=== PATIENT | male | born 1930 | race Caucasian/White ===

== ENCOUNTER 2016-05-02 13:42 | Emergency (ER) | payer OTHER, MEDICARE ==
[~2016-05-02] VITALS: Ht 177.8 cm; Wt 95.3 kg
[~2016-05-02 13:42] MED LIST: ALBUTEROL0.09 MG/A1 PO; AUGMENTIN 875875 MG PO; DIOVAN HCT 1601 EAC1 PO; PREDNISONE10 MG PO; Robitussin PO
--- NOTE | 2016-05-02 14:34 | ED GENERAL ADULT ---
History of Present Illness General Chief Complaint: Upper Respiratory Sx/Fever Stated Complaint: URI/SORETHROAT Source: patient, old records Exam Limitations: no limitations Vital Signs & Intake/Output Vital Signs & Intake/Output Vital Signs Date Time Temp Pulse Resp B/P Pulse O2 O2 Flow FiO2 Ox Delivery Rate 05/02 1538 98.0 75 22 136/64 94 Room Air 05/02 1525 94 05/02 1500 94 Room Air Room Air 05/02 1355 97.8 72 20 110/66 94 Room Air Allergies Coded Allergies: NO KNOWN ALLERGIES (05/02/16) Reconcile Medications Albuterol Sulfate (Proair Hfa) 90 MCG HFA.AER.AD 2 PUF INH Q4-6 PRN PRN WHEEZING Azithromycin (Zithromax) 250 MG TABLET 1 DP PO AD BRONCHITIS 2 the first day followed by 1 for days 2-5 Benzonatate (Tessalon Perle) 100 MG CAPSULE 1 CAP PO TID PRN COUGH Hydrochlorothiazide/Valsarta (Diovan Hct 25 MG-160 MG) 1 TAB TAB 1 TAB PO DAILY HTN (Reported) Triage Note: RECEIVED 85 YO MALE C/O SORE THROAT, RUNNY NOSE, CONGESTION, MILD COUGH X 6 DAYS WITH CONGESTION. PT REPORTS WHEEZING TODAY. FAINT EXP WHHEZES AUSCULTATED. O2 SATS 97% Triage Nurses Notes Reviewed? yes Onset: Gradual Duration: week(s): (1) Timing: recent history Injury Environment: home Severity: moderate Severity Numbers: 6 HPI: Patient is an 85-year-old male presenting to the emergency department with chief complaint of wheezing, dry cough and chills and upper respiratory congestion nothing going on for the past 7 or 8 days. He's been using over the counter medication without relief. Denies any fevers. No recent travel. He did receive the flu vaccination this year. No chest pain or shortness of breath. Denies abdominal pain. No back pain. No palpitations. (ADRIENNE CHILDS) Past History Travel History Traveled to [place] past 21 day No Medical History Any Pertinent Medical History? 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 No (ADRIENNE CHILDS) Review of Systems Review of Systems Constitutional: Reports: chills. Comments Review of systems: See HPI, All other systems negative. Constitutional, no fever or weight loss HEENT: No visual changes no sore throat Cardiovascular: No chest pain ,palpitation , orthopnea or ankle swelling Skin, no jaundice no rashes Respiratory: No dyspnea sputum or hemoptysis GI: No nausea no vomiting : No dysuria No hematuria Muscle skeletal: no back pain, no neck pain, Neurologic: No numbness no confusion no evans Psych: No stress anxiety or depression,. Heme/endocrine: No bruising no bleeding no polyuria or polydipsia Immunology: No splenectomy or history of AIDS (ADRIENNE CHILDS) Physical Exam Physical Exam General Appearance: well developed/nourished, no apparent distress, alert, awake , comfortable Comments: Well-developed well-nourished person in no acute distress HEENT: Pupils equally round and reactive to light and accommodation. Nose is atraumatic. External auditory canal and Tympanic membranes clear. Pharynx is mildly erythematous, no exudate, clearing secretions without difficulty. No swelling or edema. Clear nasal discharge bilaterally. Neck: Supple, no lymphadenopathy, normal range of motion without pain or tenderness Back: Nontender, no CVA tenderness. Full range of motion Cardiovascular: Regular rate and rhythms no murmurs rubs or gallops, normal JVP Respiratory: Chest nontender. No respiratory distress.mild respiratory wheezing noted in the right upper lung field, left lung field is clear to auscultation. Extremity: No edema, Neuro: Alert oriented x3 Skin: No appreciable rash on exposed skin, skin is warm and dry. Psych: Mood and affect is normal, memory and judgment is normal. Core Measures ACS in differential dx? No CVA/TIA Diagnosis: No Severe Sepsis Present: No Septic Shock Present: No (ADRIENNE CHILDS) Progress Differential Diagnoses I considered the following diagnoses in my evaluation of the patient: Pneumonia , bronchitis, upper respiratory infection, sinusitis, viral syndrome Plan of Care: Orders Procedure Date/time Status AEROSOL (GEN) 05/02 1500 Complete THROAT CULTURE W/QUICK STREP 05/02 1357 Active Diagnostic Imaging: Viewed by Me: Radiology Read. Discussed w/RAD: Radiology Read. Radiology Impression: PATIENT: RENE ELY PRESENT AGE: 85 PATIENT ACCOUNT NO: [id number] : 31 LOCATION: [facility] ORDERING PHYSICIAN: ADRIENNE ROBISON SERVICE DATE: 05/02/16 EXAM TYPE: RAD - XRY-CHEST XRAY, PA AND LATERAL EXAMINATION: XR CHEST CLINICAL INFORMATION: Cough , congestion. Evaluate for pneumonia. COMPARISON: Multiple priors, most recent chest radiograph dated 01/14/2015. TECHNIQUE: PA and lateral views of the chest were obtained. FINDINGS: No focal consolidation. No pleural effusion or pneumothorax. The cardiomediastinal silhouette is not enlarged. Nonspecific linear calcification is redemonstrated at the cardiac apex, more prominent than on the prior examination. Mild degenerative changes within the visualized thoracic spine. IMPRESSION: 1. No focal consolidation. 2. Nonspecific linear calcification redemonstrated at the cardiac apex, more prominent than on the prior examination. Initial ED EKG: none Comments: On reevaluation patient's wheezing has improved. X-rays negative for pneumonia. Patient likely has bronchitis. Patient will be started on antibiotics, Tessalon Perles, pro-air. He will follow up with PCP. Discussed with Dr. Mendes and he agrees with plan. (ADRIENNE CHILDS) Departure Departure Time of Disposition: 1547 Disposition: HOME OR SELF CARE Condition: Stable Clinical Impression Primary Impression: Bronchitis Referrals: KRISTEN OLIVA MD (PCP/Family) Additional Instructions: Follow-up with your primary care physician call to make an appointment. Increase fluids. Take antibiotics, cough medication and use inhaler as directed. Return for worsening symptoms or concerns. Departure Forms: Customer Survey General Discharge Information Prescriptions: Current Visit Scripts Azithromycin (Zithromax) 1 DP PO AD #6 TAB 2 the first day followed by 1 for days 2-5 Benzonatate (Tessalon Perle) 1 CAP PO TID PRN COUGH #21 CAP Albuterol Sulfate (Proair Hfa) 2 PUF INH Q4-6 PRN PRN WHEEZING #1 INHAL (ADRIENNE CHILDS) PA/CATTLE DEALER Co-Sign Statement Statement: ED Attending supervision documentation- x I saw and evaluated the patient. I have also reviewed all the pertinent lab results and diagnostic results. I agree with the findings and the plan of care as documented in the PA's/CATTLE DEALER's documentation. [] I have reviewed the ED Record and agree with the PA's/CATTLE DEALER's documentation. [] Additions or exceptions (if any) to the PAs/CATTLE DEALER's note and plan are summarized below: [] (YOLANDA JUAREZ,ELIZA) Critical Care Note Critical Care Note Critical Care Time: non-applicable (ADRIENNE CHILDS)
--- NOTE | 2016-05-02 15:30 | RADIOLOGY REPORT ---
EXAMINATION: XR CHEST CLINICAL INFORMATION: Cough, congestion. Evaluate for pneumonia. COMPARISON: Multiple priors, most recent chest radiograph dated 01/14/2015. TECHNIQUE: PA and lateral views of the chest were obtained. FINDINGS: No focal consolidation. No pleural effusion or pneumothorax. The cardiomediastinal silhouette is not enlarged. Nonspecific linear calcification is redemonstrated at the cardiac apex, more prominent than on the prior examination. Mild degenerative changes within the visualized thoracic spine. IMPRESSION: 1. No focal consolidation. 2. Nonspecific linear calcification redemonstrated at the cardiac apex, more prominent than on the prior examination.
[2016-05-02 15:38] VITALS: BP 136/64
[2016-05-02] MEDS ORDERED: PROAIR HFA8.5 GM INH (15:49)
[2016-05-02] MEDS ORDERED: TESSALON PERLE100 M1 PO (15:49)
[2016-05-02] MEDS ORDERED: ZITHROMAX250 M2 PO (15:49)
== END 2016-05-02 16:08 ==
LOC: ERH 13:42
DX: J40 Bronchitis, not specified as acute or chronic (principal)
CPT/HCPCS: 1263

== ENCOUNTER 2016-05-09 11:00 | Emergency (ER) | payer OTHER, MEDICARE ==
[~2016-05-09] VITALS: Ht 177.8 cm; Wt 95.3 kg
[~2016-05-09 11:00] MED LIST changes: +PROAIR HFA8.5 GM INH; +TESSALON PERLE100 M1 PO; +ZITHROMAX250 M2 PO
[2016-05-09 11:13] VITALS: BP 111/67
--- NOTE | 2016-05-09 11:38 | ED GENERAL ADULT ---
History of Present Illness General Chief Complaint: Hand or Wrist Injury Stated Complaint: HAND INJURY Source: patient Exam Limitations: no limitations Vital Signs & Intake/Output Vital Signs & Intake/Output Vital Signs Date Time Temp Pulse Resp B/P Pulse O2 O2 Flow FiO2 Ox Delivery Rate 05/09 1113 96.9 71 20 111/67 95 Room Air Room Air Allergies Coded Allergies: NO KNOWN ALLERGIES (05/02/16) Reconcile Medications Ibuprofen 800 MG TABLET 1 TAB PO TID PAIN Tramadol HCl 50 MG TABLET 1 TAB PO Q6P PRN SEVERE PAIN Valsartan/Hydrochlorothiazide (Diovan Hct 160-25 MG Tablet) 160 MG-25 MG TABLET 1 TAB PO DAILY HEART (Reported) Triage Note: PT TO ED WITH C/O LEFT HAND INJURY S/P "I WAS PLAYING FOOTBALL WITH THE KIDS A FEW DAYS AGO, THIS MORNING ALOT OF PAIN". Triage Nurses Notes Reviewed? yes HPI: 85 year old man seen for evaluation of left hand/wrist pain. He was playing football approximately three days ago when he caught the ball in a way where he stubbed his thumb and index finger. He reports associated 9/10 achy pain without radiation in those fingers and wrist. He denies any further injury, falls, head trauma, loss of consciousness, numbness/tingling. He does admit to weakness secondary to pain. (ANALI RAGSDALE MD) Past History Travel History Traveled to [place] past 21 day No Medical History Any Pertinent Medical History? 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 Yes (ANALI RAGSDALE MD) Review of Systems Review of Systems Constitutional: Reports: see HPI. (ANALI RAGSDALE MD) Physical Exam Physical Exam General Appearance: well developed/nourished, no apparent distress, alert, awake , comfortable Comments: General - well developed, well nourished elderly man in no acute distress HEENT - NCAT, PERRL, EOMI, anicteric sclera Ext: left hand wrapped in KOBI banagage without any obvious drainage, no obvious deformity or skin lesions, unable to grasp secondary to pain, normal pulses and sensation, anatomical snuff box tenderness to palpation Core Measures ACS in differential dx? No CVA/TIA Diagnosis: No Severe Sepsis Present: No Septic Shock Present: No (ANALI RAGSDALE MD) Progress Differential Diagnoses I considered the following diagnoses in my evaluation of the patient: ligamentous strain, bone fracture Initial ED EKG: none Comments: Radiographs obtained of the right hand and wrist did not demonstrate any acute fracture or dislocation. Extensive manifestations of osteoarthritis, most notable at the first carpometacarpal joint and first interphalangeal joint are noted. Patient's left hand/wrist were placed in a splint. Patient is to be discharged to home with a prescription for ibuprofen for pain relief and a short prescription of tramadol for breakthrough pain with instruction to follow-up with his primary care provider should his symptoms persist. 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 Take ibuprofen and tramadol as directed. Departure Forms: Customer Survey General Discharge Information Prescriptions: Current Visit Scripts Ibuprofen 1 TAB PO TID #90 TAB Tramadol HCl 1 TAB PO Q6P PRN SEVERE PAIN #15 TAB (ANALI RAGSDALE MD) Resident Co-Sign Statement Statement: ED Attending supervision documentation- [X] I saw and evaluated the patient. I have also reviewed all the pertinent lab results and diagnostic results. I agree with the findings and the plan of care as documented in the Resident's documentation. [] I have reviewed the ED Record and agree with the Resident's documentation. [] Additions or exceptions (if any) to the Resident's note and plan are summarized below: [] (VICKI JUAREZJASE) Critical Care Note Critical Care Note Critical Care Time: non-applicable (MELYSSA JUAREZ,ANALI)
--- NOTE | 2016-05-09 12:15 | RADIOLOGY REPORT ---
EXAMINATION: XR WRIST, LEFT XR HAND, LEFT CLINICAL INFORMATION: Injury to left hand and wrist COMPARISON: Left wrist radiographs and left hand radiograph 07/17/2010. TECHNIQUE: 4 views of the left wrist and 3 views of the left hand performed. FINDINGS: Left wrist: Mild to moderate degenerative changes are seen at the triscaphe joint and moderately advanced degenerative changes at the first carpometacarpal joint are identified with sclerosis, joint space narrowing and osteophyte formation. There is mild lateral subluxation of the first metacarpal bone. The findings are slightly progressed since prior. No acute abnormality is seen in the carpal bones. Left hand: Degenerative changes are seen at the first carpometacarpal joint with lateral subluxation, subchondral sclerosis and cystic change identified. There is mild narrowing of the first and second metacarpal phalangeal joints with soft tissue swelling. Moderate narrowing of the third through fifth metacarpal phalangeal joints. Moderately advanced degenerative changes are seen at the first interphalangeal joint with joint space narrowing and osteophyte formation. There is advanced joint space narrowing and hypertrophic osteophyte formation with subchondral sclerosis involving the second through fifth PIP and DIP joints with progression since 07/17/2010. Associated moderate periarticular soft tissue swelling. No evidence of chondrocalcinosis. IMPRESSION: No acute fracture or dislocation is seen. Extensive manifestations of osteoarthritis most notable at the first carpometacarpal joint and the first interphalangeal joint and the second through fifth PIP and DIP joints as above. The findings have shown progression since the prior study of 07/17/2010.
[2016-05-09] MEDS ORDERED: IBUPROFEN800 M1 PO (12:25)
[2016-05-09] MEDS ORDERED: TRAMADOL HCL50 M1 PO (12:25)
== END 2016-05-09 12:39 ==
LOC: ERH 11:00
DX: M19.032 Primary osteoarthritis, left wrist (principal); M79.642 Pain in left hand
CPT/HCPCS: 73110-LT; 73130-LT

== ENCOUNTER 2016-10-09 14:44 | Emergency (ER) | payer OTHER, MEDICARE ==
[~2016-10-09] VITALS: Ht 170.2 cm; Wt 96.2 kg
[~2016-10-09 14:44] MED LIST changes: +IBUPROFEN800 M1 PO; +TRAMADOL HCL50 M1 PO
[2016-10-09 14:54] VITALS: BP 120/70
== END 2016-10-09 15:00 | disposition admitted as inpatient to this hospital (09) ==
LOC: ERH 14:44
DX: Z77.098 Contact with and (suspected) exposure to other hazardous, chiefly nonmedicinal, chemicals (principal)

== ENCOUNTER 2017-09-11 15:20 | Inpatient (IN) | payer OTHER, MEDICARE ==
[~2017-09-11] VITALS: Ht 177.8 cm; Wt 92.1 kg
[~2017-09-11 15:20] MED LIST changes: +BACLOFEN10 M1 PO; +IBUPROFEN600 M1 PO; +ULTRAM50 M1 PO
--- NOTE | 2017-09-11 15:29 | ED GENERAL ADULT ---
See Addendum History of Present Illness General Chief Complaint: Lower Extremity Problems Stated Complaint: RIGHT KNEE PAIN X1 WEEK Source: patient Exam Limitations: no limitations Vital Signs & Intake/Output Vital Signs & Intake/Output Vital Signs Date Time Temp Pulse Resp B/P B/P Pulse O2 O2 Flow FiO2 Mean Ox Delivery Rate 09/11 1703 97.6 72 18 178/72 97 Room Air Room Air 09/11 1527 98.7 77 18 188/78 95 Room Air Room Air Allergies Coded Allergies: NO KNOWN ALLERGIES (05/02/16) Reconcile Medications Baclofen 10 MG TABLET 1 TAB PO TIDPRN PRN muscle spasm/strain Ibuprofen 600 MG TABLET 1 TAB PO Q6PRN PRN pain with food Ibuprofen 800 MG TABLET 1 TAB PO TID PAIN Tramadol HCl (Ultram) 50 MG TABLET 1 TAB PO Q6PRN PRN severe pain Tramadol HCl 50 MG TABLET 1 TAB PO Q6P PRN SEVERE PAIN Valsartan/Hydrochlorothiazide (Diovan Hct 160-25 MG Tablet) 160 MG-25 MG TABLET 1 TAB PO DAILY HEART (Reported) Triage Nurses Notes Reviewed? yes Onset: Yesterday Duration: day(s): Timing: recent history Severity: moderate HPI: 87 Year old male presents to the Emergency Department presents with right sided knee pain and hip pain. He was climbing the stairs when his right knee gave out causing him to go down on his right knee. He denies headache, neck pain, chest pain or other complaints. He does have a history of chronic low back pain. Past History Travel History Traveled to [place] past 21 day No Medical History Any Pertinent Medical History? 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 No Review of Systems Review of Systems Constitutional: Reports: see HPI. EENTM: Reports: no symptoms. Respiratory: Reports: no symptoms. Cardiovascular: Reports: no symptoms. GI: Reports: no symptoms. Genitourinary: Reports: no symptoms. Musculoskeletal: Reports: see HPI, joint pain, joint swelling, muscle pain, muscle stiffness. Skin: Reports: no symptoms. Neurological/Psychological: Reports: no symptoms. Hematologic/Endocrine: Reports: no symptoms. Immunologic/Allergic: Reports: no symptoms. Physical Exam Physical Exam General Appearance: well developed/nourished, alert, awake, mild distress Head: atraumatic, normal appearance Eyes: Bilateral: normal appearance, PERRL, EOMI. Ears, Nose, Throat: normal ENT inspection Neck: normal inspection, full range of motion Respiratory: normal breath sounds, chest non-tender Cardiovascular: regular rate/rhythm Peripheral Pulses: 4+ radial (R), 4+ radial (L), 4+ dorsalis pedis (R), 4+ dorsalis pedis (L) Gastrointestinal: soft, non-tender Back: normal inspection Extremities: Right knee pain and swelling, Right hip pain Neurologic/Psych: awake, alert, oriented x 3 Skin: intact, normal color, warm/dry Core Measures ACS in differential dx? No CVA/TIA Diagnosis: No Sepsis Present: No Sepsis Focused Exam Completed? No Progress Differential Diagnoses I considered the following diagnoses in my evaluation of the patient: Contusion of knee, Patella fracture, Muscle strain, Hip dislocation, Dislocation of the patella. Plan of Care: Orders Procedure Date/time Status COMPREHENSIVE METABOLIC PANEL 09/11 1536 Active CBC WITHOUT DIFFERENTIAL 09/11 1536 Complete Current Medications Sig/Edgardo Start time Last Medication Dose Stop Time Status Admin Sodium Chloride 1,000 ML ONCE ONE 09/11 1545 AC 09/11 (Normal Saline 0.9%) 09/11 2224 1645 Laboratory Tests 09/11/17 1651: Sodium Pending, Potassium Pending, Chloride Pending, Carbon Dioxide Pending, Anion Gap Pending, BUN Pending, Creatinine Pending, BUN/Creatinine Ratio Pending , Glucose Pending, Calcium Pending, Total Bilirubin Pending, AST Pending, ALT Pending, Alkaline Phosphatase Pending, Total Protein Pending, Albumin Pending, Globulin Pending, Albumin/Globulin Ratio Pending, CBC w Diff NO MAN DIFF REQ, RBC 4.27 L, MCV 86.6, MCH 29.1, MCHC 33.5, RDW 13.5, MPV 7.6, Gran % 67.7, Lymphocytes % 20.1 L, Monocytes % 8.4, Eosinophils % 3.5, Basophils % 0.3, Absolute Granulocytes 4.2, Absolute Lymphocytes 1.3, Absolute Monocytes 0.5, Absolute Eosinophils 0.2, Absolute Basophils 0 Initial ED EKG: none Departure Departure Disposition: STILL A PATIENT Condition: Stable Clinical Impression Primary Impression: Knee pain Referrals: Oumar Davis MD (PCP/Family) Departure Forms: Customer Survey General Discharge Information Comments CT of the pelvis and x-ray of the right knee were ordered. IMPRESSION: Degenerative disc disease at L4-L5 and L5-S1. There is spinal stenosis at L4-L5 due to disc, short pedicles and facet arthritis. 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 No fracture, dislocation or bone lesion is seen. DICTATED BY: Malena Santos MD DATE/TIME DICTATED:09/11/171632 SPECIALTY MOLDER:CLEMENTE DATE/TIME TRANSCRIBED:09/11/171632 CONFIDENTIAL, DO NOT COPY WITHOUT APPROPRIATE AUTHORIZATION. <Electronically signed in Other Vendor System> SIGNED BY: Malena Santos MD 164 PATIENT: RENE ELY PRESENT AGE: 87 PATIENT ACCOUNT NO: [id number] : 31 LOCATION: [facility] ORDERING PHYSICIAN: Jovany Hope DO SERVICE DATE: 09/11/17 EXAM TYPE: RAD - XRY-KNEE COMPLETE RIGHT EXAMINATION: XR KNEE, RIGHT CLINICAL INFORMATION: Fall. Pain. COMPARISON: None TECHNIQUE: Four views of the right knee. FINDINGS: There is no visible acute fracture or dislocation. Mild loss of medial compartment joint space is noted. There is moderate superior and inferior patellar enthesophytes and superior inferior spurring. No loose bodies seen. No bony erosive changes. IMPRESSION: Loss of medial compartment joint space suggestive of degenerative arthritic changes. No visible acute fracture, dislocation or subluxation seen. DICTATED BY: Joseph Almanza MD DATE/TIME DICTATED:09/11/171627 SPECIALTY MOLDER:CLEMENTE DATE/TIME TRANSCRIBED:09/11/171627 CONFIDENTIAL, DO NOT COPY WITHOUT APPROPRIATE AUTHORIZATION. <Electronically signed in Other Vendor System> SIGNED BY: Joseph Almanza MD 09/11/171633 CT scan of the pelvis shows spinal stenosis and degenerative joint disease. X- ray of the right knee show severe arthritic changes. No fracture or dislocation. Repeat vascular injury of the lower extremity is normal. The right foot is warm. There is no popliteal swelling. Right dorsalis pedis pulse is 4+ and his capillary refill of all the toes of the right foot is less than 2 seconds. We'll treat with right knee immobilizer and cane for ambulation. He will follow -up with orthopedics this week. Short course of prednisone. Critical Care Note Critical Care Note Critical Care Time: non-applicable
--- NOTE | 2017-09-11 16:34 | RADIOLOGY REPORT ---
EXAMINATION: XR KNEE, RIGHT CLINICAL INFORMATION: Fall. Pain. COMPARISON: None TECHNIQUE: Four views of the right knee. FINDINGS: There is no visible acute fracture or dislocation. Mild loss of medial compartment joint space is noted. There is moderate superior and inferior patellar enthesophytes and superior inferior spurring. No loose bodies seen. No bony erosive changes. IMPRESSION: Loss of medial compartment joint space suggestive of degenerative arthritic changes. No visible acute fracture, dislocation or subluxation seen.
--- NOTE | 2017-09-11 16:43 | CT SCAN REPORT ---
EXAMINATION: CT PELVIS WITHOUT CONTRAST CLINICAL INFORMATION: Low back and right hip pain COMPARISON: Spine and left hip x-ray November 2016 TECHNIQUE: Helical scanning was performed with submillimeter collimation through the pelvis. Sagittal and coronal multiplanar 2-D reconstructions were obtained. DLP: 1130 mGy-cm FINDINGS: There is evidence of degenerative disc disease and secondary spinal stenosis due to the disc, short pedicles and facet arthritis at L4-L5. There is also evidence of severe degenerative disc disease with disc space narrowing and vacuum change at L5-S1. There is mild arthritis at both hip joints. No fracture, dislocation or bone lesion is seen. Visualized bowel is unremarkable. The prostate gland is slightly enlarged measuring 4.4 x 5.7 cm in AP and transverse dimension. The bladder is unremarkable. No ascites or adenopathy is seen. No aneurysm is seen. No significant hernia is seen. IMPRESSION: Degenerative disc disease at L4-L5 and L5-S1. There is spinal stenosis at L4-L5 due to disc, short pedicles and facet arthritis. 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 No fracture, dislocation or bone lesion is seen.
[2017-09-11 17:02] LABS: ABSOLUTE BASOPHIL COUNT 0 /CUMM (0.0-0.2); ABSOLUTE EOSINOPHIL COUNT 0.2 /CUMM (0.0-0.7); ABSOLUTE GRANULOCYTE CT 4.2 /CUMM (1.4-6.5); ABSOLUTE LYMPH COUNT 1.3 /CUMM (1.2-3.4); ABSOLUTE MONOCYTE COUNT 0.5 /CUMM (0.10-0.60); BASOPHIL % 0.3 % (0.0-2.0); EOSINOPHIL % 3.5 % (0-5); GRANULOCYTE % 67.7 % (42.2-75.2); MEAN CORPUSCULAR HGB 29.1 PG (27.0-31.0); MEAN CORPUSCULAR HGB CONC 33.5 G/DL (33.0-37.0); MEAN CORPUSCULAR VOLUME 86.6 FL (80.0-94.0); MEAN PLATELET VOLUME 7.6 FL (7.4-10.4); PLATELET COUNT 225 /CUMM (130-400); RBC DISTRIBUTION WIDTH 13.5 % (11.5-14.5); RED BLOOD CELL CT 4.27 /CUMM (4.70-6.10); WHITE BLOOD CELL COUNT 6.3 /CUMM (4.8-10.8)
[2017-09-11] MEDS ORDERED: PREDNISONE20 M1 PO (18:00)
[2017-09-11] MEDS ORDERED: VITAMIN D2000 UNIT PO (18:56)
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
[2017-09-11 21:54] VITALS: BP 158/72
--- NOTE | 2017-09-12 01:13 | Admission Certification ---
Admission Certification Certification Statement - As attending physician, I certify that at the time of - admission, based on clinical presentation, severity of - symptoms, need for further diagnostic testing and - therapeutic interventions, and risk of adverse outcomes - without in-hospital treatment, in my clinical assessment, - this patient requires an acute hospital stay for a minimum - of two nights or longer. I have also considered psychsocial - factors such as support system, advanced age, financial - issues, cognitive issues, and failed out-patient treatments, - past re-admission history, safety of patient, and lack of - compliance as applicable. Specific rationale supporting this admission is: Right knee pain, unstable gait, inability to to ambulate
[2017-09-12 06:30] VITALS: BP 124/60
--- NOTE | 2017-09-12 09:32 | PN- Orthopedic ---
Surgical Brief Attending Note Brief Attending Note: Asked to see the patient in consultation for right knee pain. Patient was admitted to the hospital complaints of difficulty bearing weight on the right lower extremity. Have difficulty going up and down stairs. Patient was admitted to the hospital complaints of difficulty bearing weight on the right lower extremity. No trauma reported. No trauma reported. On physical exam the patient lumbar spine was examined. There is no significant paraspinal muscle spasm lumbar spine is examined. Bilateral lower extremities neurovascularly intact. No swelling about the right knee. Painless range of motion of the right knee. No sign of septic arthritis. No sign of septic arthritis. X-rays the right knee reveal minimal degenerative changes. CT scan of the pelvisCT scan of the pelvis shows visualization lumbar spine with degenerative disc disease and spinal stenosis Assessment: Low back and right leg pain Consider anti-inflammatory treatment or Medrol Dosepak
[2017-09-12 14:26] VITALS: BP 134/60
--- NOTE | 2017-09-12 15:12 | PN- Att Addend ---
Attending Addendum Attending Brief Note 87M PMH History of prostate cancer S/P Lupron and radiation, HTN, nephrolithiasis, low back pain admitted for intractable right knee and right back pain, unable to ambulate due to pain with unsteady gait. Pain persists today and is slightly improved. No other complaints. Imaging negative for fracture. Labs reviewed. 13-point ROS negative AFVSS NAD NCAT MMM Supple RRR CTAB Soft, NTND No c/c/e Pulses intact No focal deficits Current Medications Sig/Edgardo Start time Last Medication Dose Route Stop Time Status Admin Acetaminophen 650 MG Q6P PRN 09/11 1930 AC PO Acetaminophen 0 .STK-MED ONE 09/11 1703 DC IV Acetaminophen 1,000 MG ONCE ONE 09/11 1545 DC 09/11 IV 09/11 1546 1645 Baclofen 10 MG STAT STA 09/11 1633 DC 09/11 PO 09/11 1634 1745 Enoxaparin Sodium 40 MG DAILY 09/11 2000 AC 09/12 SC 0849 Enoxaparin Sodium 0 .STK-MED ONE 09/11 1948 DC SC Hydrochlorothiazide 25 MG DAILY 09/12 0900 AC 09/12 PO 0849 Hydrochlorothiazide 25 MG ONCE ONE 09/11 1645 DC 09/11 PO 09/11 1646 1738 Ibuprofen 0 .STK-MED ONE 09/11 1731 DC PO Ibuprofen 400 MG ONCE ONE 09/11 1645 DC 09/11 PO 09/11 1646 1738 Losartan Potassium 50 MG DAILY 09/12 0900 AC 09/12 PO 0849 Losartan Potassium 50 MG ONCE ONE 09/11 1645 DC 09/11 PO 09/11 1646 1738 Methylprednisolone 4 MG 00 09/17 0900 AC PO 09/17 0901 Methylprednisolone 4 MG 0900,09/16 0900 AC PO 09/16 210 Methylprednisolone 4 MG 0900,1300,09/15 0900 AC PO 09/15 210 Methylprednisolone 4 MG 09/14 AC PO 09/14 210 Methylprednisolone 4 MG PC 09/14 0900 AC PO 09/14 1801 Methylprednisolone 8 MG 09/13 AC PO 09/13 2100 Methylprednisolone 4 MG PC 09/13 0900 AC PO 09/13 1801 Methylprednisolone 12 MG 2100 09/12 2099 AC PO 09/12 210 Methylprednisolone 12 MG ONCE ONE 09/12 1430 DC PO 09/12 1431 Morphine Sulfate 1 MG Q4P PRN 09/11 2114 AC IV Morphine Sulfate 2 MG Q4P PRN 09/11 1930 DC IV Sodium Chloride 1,000 ML ONCE ONE 09/11 1545 DC 09/11 IV 09/11 2224 1645 Tramadol HCl 50 MG Q6 PRN 09/11 2114 AC 09/12 PO 0936 Tramadol HCl 0 .STK-MED ONE 09/11 1731 DC PO Tramadol HCl 50 MG ONCE ONE 09/11 164 DC 09/11 PO 09/11 164 1738 Laboratory Tests 09/11 1651 Chemistry Sodium (137 - 145 mmol/L) 145 Potassium (3.5 - 5.1 mmol/L) 4.7 Chloride (98 - 107 mmol/L) 107 Carbon Dioxide (22 - 30 mmol/L) 28 Anion Gap (5 - 16) 11 BUN (9 - 20 mg/dL) 44 H Creatinine (0.7 - 1.2 mg/dL) 1.2 Estimated GFR (>60 ml/min) 57 L BUN/Creatinine Ratio (7 - 25 %) 36.7 H Glucose (65 - 99 mg/dL) 90 Calcium (8.4 - 10.2 mg/dL) 9.8 Total Bilirubin (0.2 - 1.3 mg/dL) 0.3 AST (17 - 59 U/L) 26 ALT (21 - 72 U/L) 42 Alkaline Phosphatase (< 127 U/L) 74 Total Protein (6.3 - 8.2 g/dL) 7.2 Albumin (3.5 - 5.0 g/dL) 3.8 Globulin (1.9 - 4.2 gm/dL) 3.4 Albumin/Globulin Ratio (1.1 - 2.2 %) 1.1 Hematology CBC w Diff NO MAN DIFF REQ WBC (4.8 - 10.8 /CUMM) 6.3 RBC (4.70 - 6.10 /CUMM) 4.27 L Hgb (14.0 - 18.0 G/DL) 12.4 L Hct (42 - 52 %) 37.0 L MCV (80.0 - 94.0 FL) 86.6 MCH (27.0 - 31.0 PG) 29.1 MCHC (33.0 - 37.0 G/DL) 33.5 RDW (11.5 - 14.5 %) 13.5 Plt Count (130 - 400 /CUMM) 225 MPV (7.4 - 10.4 FL) 7.6 Gran % (42.2 - 75.2 %) 67.7 Lymphocytes % (20.5 - 51.1 %) 20.1 L Monocytes % (1.7 - 9.3 %) 8.4 Eosinophils % (0 - 5 %) 3.5 Basophils % (0.0 - 2.0 %) 0.3 Absolute Granulocytes (1.4 - 6.5 /CUMM) 4.2 Absolute Lymphocytes (1.2 - 3.4 /CUMM) 1.3 Absolute Monocytes (0.10 - 0.60 /CUMM) 0.5 Absolute Eosinophils (0.0 - 0.7 /CUMM) 0.2 Absolute Basophils (0.0 - 0.2 /CUMM) 0 Vital Signs Date Time Temp Pulse Resp B/P B/P Pulse O2 O2 Flow FiO2 Mean Ox Delivery Rate 09/12 1426 98.1 62 20 134/60 92 Room Air 09/12 0849 62 140/58 09/12 0630 98.0 62 18 124/60 93 09/11 2154 98.3 69 158/72 95 Room Air 09/11 2024 98.2 74 18 97 Room Air 09/11 1948 151/73 09/11 1927 98.4 76 18 181/77 96 09/11 1738 178/72 09/11 1703 97.6 72 18 178/72 97 Room Air Room Air 09/11 1527 98.7 77 18 188/78 95 Room Air Room Air Intake & Output 09/12 1600 09/12 0800 09/12 0000 Intake Total 900 120 4933 Output Total 275 600 750 Balance 125 -400 450 Intake, IV 1000 Intake, Oral 400 200 200 Output, Urine 275 600 750 Patient 96.417 kg Weight Weight Bed scale Measurement Method 1. Intractable right knee and back pain 2. Unable to ambulate 3. Unsteady gait Plan - Continue on general medicine - Start Medrol dose pack - Continue home medications - PT evaluation - DVT PPx
[2017-09-12 22:06] VITALS: BP 120/72
[2017-09-13 06:55] VITALS: BP 140/66
[2017-09-13 08:03] LABS: ABSOLUTE BASOPHIL COUNT 0 /CUMM (0.0-0.2); ABSOLUTE EOSINOPHIL COUNT 0 /CUMM (0.0-0.7); ABSOLUTE GRANULOCYTE CT 6.2 /CUMM (1.4-6.5); ABSOLUTE MONOCYTE COUNT 0.3 /CUMM (0.10-0.60); BASOPHIL % 0.3 % (0.0-2.0); EOSINOPHIL % 0.1 % (0-5); HEMATOCRIT 36.8 % (42-52); MEAN CORPUSCULAR HGB 29.8 PG (27.0-31.0); MEAN CORPUSCULAR HGB CONC 34.2 G/DL (33.0-37.0); MEAN CORPUSCULAR VOLUME 87.1 FL (80.0-94.0); MEAN PLATELET VOLUME 8.3 FL (7.4-10.4); PLATELET COUNT 229 /CUMM (130-400); RBC DISTRIBUTION WIDTH 13.2 % (11.5-14.5); RED BLOOD CELL CT 4.23 /CUMM (4.70-6.10); WHITE BLOOD CELL COUNT 7.4 /CUMM (4.8-10.8)
[2017-09-13 08:42] LABS: GRANULOCYTE % 83.1 % (42.2-75.2)
[2017-09-13 09:03] VITALS: BP 148/68
--- NOTE | 2017-09-13 13:06 | PN- Housestaff ---
Mandy JUAREZ,[facility] 09/13/17 1305: Subjective Follow-up For: Right knee pain Subjective: Mr Langley was seen and examined this morning. He reports no issues and states that he feels better. He has been able to ambulate (with a walker). He states that his pain is much better controlled. He has been tolerating PO intake well. Denies any fever, chills, chest pain or dyspnea. He states that he would like to be discharged home soon. Review of Systems Constitutional: Reports: see HPI. Objective Last 24 Hrs of Vital Signs/I&O Vital Signs Date Time Temp Pulse Resp B/P B/P Pulse O2 O2 Flow FiO2 Mean Ox Delivery Rate 09/13 0903 80 148/68 09/13 0655 98.3 80 18 140/66 93 Room Air 09/12 2206 97.4 68 18 120/72 93 Room Air 09/12 1426 98.1 62 20 134/60 92 Room Air Intake & Output 09/13 1600 09/13 0800 09/13 0000 Intake Total Output Total 1750 700 Balance -1750 -700 Output, Urine 1750 700 Patient 92.136 kg Weight Weight Bed scale Measurement Method Physical Exam General Appearance: Alert, Oriented X3, Cooperative Cardiovascular: Normal S1, Normal S2 Lungs: Clear to Auscultation, Normal Air Movement Abdomen: Normal Bowel Sounds, Soft, Distended Neurological: Strength at 5/5 X4 Ext, Normal Tone, Sensation Intact, Cranial Nerves 3-12 NL Extremities: No Edema, Right Leg in Immobilizer Vascular: Normal Pulses Current Medications: Current Medications Sig/Edgardo Start time Last Medication Dose Route Stop Time Status Admin Acetaminophen 650 MG Q6P PRN 09/11 1930 AC PO Enoxaparin Sodium 40 MG DAILY 09/12 1999 AC 09/12 SC 0849 Hydrochlorothiazide 25 MG DAILY 09/12 09 AC 09/12 PO 0849 Losartan Potassium 50 MG DAILY 09/12 09 AC 09/13 PO 0903 Methylprednisolone 4 MG 09/17 09 AC PO 09/17 09 Methylprednisolone 4 MG 0900,09/16 09 AC PO 09/16 2100 Methylprednisolone 4 MG 0900,1300,09/15 0900 AC PO 09/15 210 Methylprednisolone 4 MG 09/14 AC PO 09/14 2100 Methylprednisolone 4 MG PC 09/14 09 AC PO 09/14 180 Methylprednisolone 8 MG 09/13 AC PO 09/13 2100 Methylprednisolone 4 MG PC 09/13 0900 AC PO 09/13 180 Methylprednisolone 12 MG 2100 09/12 2099 DC 09/12 PO 09/12 2100 2019 Methylprednisolone 12 MG ONCE ONE 09/12 1430 DC 09/12 PO 09/12 143 1724 Morphine Sulfate 1 MG Q4P PRN 09/11 211 AC IV Patient Medication 1 ED ONE ONE 09/[address] Teaching ED 09/13 945 Tramadol HCl 50 MG Q6 PRN 09/11 2114 AC 09/12 PO 0936 Last 24 Hrs of Lab/Fernie Results Last 24 Hrs of Labs/Mics: Laboratory Tests 09/13/17 0654: Anion Gap 12, Estimated GFR 52 L, BUN/Creatinine Ratio 26.2 H, CBC w Diff NO MAN DIFF REQ, RBC 4.23 L, MCV 87.1, MCH 29.8, MCHC 34.2, RDW 13.2, MPV 8.3, Gran % 83.1 H, Lymphocytes % 13.1 L, Monocytes % 3.4, Eosinophils % 0.1, Basophils % 0.3, Absolute Granulocytes 6.2, Absolute Lymphocytes 1.0 L, Absolute Monocytes 0.3, Absolute Eosinophils 0, Absolute Basophils 0 Assessment/Plan Assessment: Mr Langley is an 87 year old male with a PMH of HTN, nephrolithiasis, prostate cancer sp treatment with radiation, remote back surgery, who was brought into to the emergency department complaining of a ten-day history of severe right knee pain. Patient stated that he had difficulty bearing weight on the right lower extremity. He was also having a hard time going up and down stairs. The patient did not report any trauma. Vital signs temperature: 98.7, heart rate 77, respiratory rate 18, blood pressure 188/78 on admission decreased to 151/73, 95% oxygen saturation on room air. EKG showed normal sinus rhythm at a rate of 74 with a QTc of 418. All imaging studies from the admission have been included at the bottom of this report. Labs showed WBC count of 6.3, hemoglobin of 12.4 which is his baseline, BUN 44, creatinine 1.2 which is about his baseline, normal liver function tests. He is admitted on the Gen. medical service (on the tele floor). #Intractable Low back and right leg pain #History of Hypertension #DOMINGA Pain is better controlled. Patient worked with PT on 09/12 and 09/13. He is cleared for discharge home. Follow up with Ortho as an outpatient. Continue right knee immobilizer. Scr has increased. Allyson pre renal. Will ask him to have a follow up BEP in a week and cc results to PCP. Heart healthy diet. DVT ppx: Lovenox. Patient is a DNR/DNI Problem List: 1. Knee pain Pain Ratin Pain Location: Right knee Pain Goal: Remain pain free Pain Plan: Tylenol/ NSAID Tomorrow's Labs & Rationales: No Labs - DC pending Chris Pierson 09/13/17 1359: Attending MD Review Statement Attending Statement Attending MD Statement: examined this patient, discuss w/resident/PA/HOT STRIP MILL INSPECTOR, agreed w/resident/PA/HOT STRIP MILL INSPECTOR, discussed with family, reviewed EMR data (avail), discussed with nursing, discussed with case mgmt, reviewed images, amended to note Attending Assessment/Plan: Patient with knee pain improvement. His creatininie is 1.3 today. PT consulted and orthopedics consulted. No intervention from Orthopedics. PT worked with him and he is able to walk up and down stairs. He is cleared for home discharge. His pain is well controlled. Anticipate discharge soon. Please follow up with PCP and check your creatinine. Also follow up with orthopedics at discharge if no improvement in symptoms. He is being discharged on medrol dose pack taper.
--- NOTE | 2017-09-13 13:31 | Discharge Summary ---
Visit Information Visit Dates Admission Date: 09/11/17 Discharge Date: 09/13/2017 Hospital Course Course Attending Physician: Chris Pierson MD Primary Care Physician: Ryan JUAREZ,[facility] Course: Mr Langley is an 87 year old male with a PMH of HTN, nephrolithiasis, prostate cancer sp treatment with radiation, remote back surgery, who was brought into to the emergency department complaining of a ten-day history of severe right knee pain. Patient stated that he had difficulty bearing weight on the right lower extremity. He was also having a hard time going up and down stairs. The patient did not report any trauma. Vital signs temperature: 98.7, heart rate 77, respiratory rate 18, blood pressure 188/78 on admission decreased to 151/73, 95% oxygen saturation on room air. EKG showed normal sinus rhythm at a rate of 74 with a QTc of 418. All imaging studies from the admission have been included at the bottom of this report. Labs showed WBC count of 6.3, hemoglobin of 12.4 which is his baseline, BUN 44, creatinine 1.2 which is about his baseline, normal liver function tests. He was admitted to the Gen. medical service (on the tele floor) and below is a summary of the care he received under us. #Intractable Low back and right leg pain #History of Hypertension #DOMINGA We obtained an orthopedic consultation for the patient who recommended the patient can be given anti inflamatories and steroid medrol dose pack. He was given a referral to follow up with them in a week. The patient did have an elevation in his serum creatinine. It was recommended to have a repeat BEP in one week. Patients home medications were continued. Patient worked with PT on 09/12 and 09/13. He was cleared for discharge home on . For DVT PPX the patient was maintained on ALPS and Lovenox. Allergies: Coded Allergies: NO KNOWN ALLERGIES (05/02/16) Pertinent Lab Results: SERVICE DATE: 09/11/17 EXAM TYPE: RAD - XRY-KNEE COMPLETE RIGHT EXAMINATION: XR KNEE, RIGHT CLINICAL INFORMATION: Fall. Pain. COMPARISON: None TECHNIQUE: Four views of the right knee. FINDINGS: There is no visible acute fracture or dislocation. Mild loss of medial compartment joint space is noted. There is moderate superior and inferior patellar enthesophytes and superior inferior spurring. No loose bodies seen. No bony erosive changes. IMPRESSION: Loss of medial compartment joint space suggestive of degenerative arthritic changes. No visible acute fracture, dislocation or subluxation seen. DICTATED BY: Cami JUAREZ,Joseph SERVICE DATE: 09/11/17-1535 EXAM TYPE: CAT - CT PELVIS WO IV CONTRAST EXAMINATION: CT PELVIS WITHOUT CONTRAST CLINICAL INFORMATION: Low back and right hip pain COMPARISON: Spine and left hip x-ray November 2016 TECHNIQUE: Helical scanning was performed with submillimeter collimation through the pelvis. Sagittal and coronal multiplanar 2-D reconstructions were obtained. DLP: 1130 mGy-cm FINDINGS: There is evidence of degenerative disc disease and secondary spinal stenosis due to the disc, short pedicles and facet arthritis at L4-L5. There is also evidence of severe degenerative disc disease with disc space narrowing and vacuum change at L5-S1. There is mild arthritis at both hip joints. No fracture, dislocation or bone lesion is seen. Visualized bowel is unremarkable. The prostate gland is slightly enlarged measuring 4.4 x 5.7 cm in AP and transverse dimension. The bladder is unremarkable. No ascites or adenopathy is seen. No aneurysm is seen. No significant hernia is seen. IMPRESSION: Degenerative disc disease at L4-L5 and L5-S1. There is spinal stenosis at L4-L5 due to disc, short pedicles and facet arthritis. 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 No fracture, dislocation or bone lesion is seen. DICTATED BY: Tom JUAREZ,Malena Marroquin Disposition Summary Disposition Principal Diagnosis: Right knee pain secondary to possible radiculopathy Additional Diagnosis: History of HTN DOMINGA, Elevation in Scr Discharge Disposition: home or self care Discharge Instructions General Discharge Information Code Status: Do Not Resucitate/Intubat Patient's Diet: Heart Patient's Activity: As Tolerated Follow-Up Instructions/Appts: Please follow up with your PCP within one week. Please follow up with the orthopedic service next week, we have provided you with a referral. Medications at Discharge Discharge Medications: Continue taking these medications: Valsartan/Hydrochlorothiazide (Diovan Hct 160-25 MG Tablet) 160 MG-25 MG TABLET 1 Tablet ORAL as needed for BP Comments: Last Taken: 09/13/17 Time: 09 AM GIVEN [place] Ibuprofen (Ibuprofen) 600 MG TABLET 1 Tablet ORAL EVERY 6 HOURS NEEDED as needed for pain Qty = 50 Instructions: with food Comments: NOT TAKEN IN HOSPITAL. Cholecalciferol (Vitamin D3) (Vitamin D) (Unknown Strength) CAPSULE Unknown Dose ORAL DAILY Comments: NOT GIVEN IN HOSPITAL. Start taking the following new medications: Methylprednisolone. (Medrol) 4 MG TAB.DS.PK 1 Dose Pack ORAL As Directed Qty = 1 No Refills Instructions: 6 on day 1 then reduce by one tablet daily until gone. Comments: NOT TAKEN IN HOSPITAL. Copies To: Ryan JUAREZ,Jaya Tejeda MD,Víctor Iverson Attending MD Review Statement Documenting Attending: Chris Pierson MD Other Findings: Patient with knee pain improvement. His creatininie is 1.3 today. PT consulted and orthopedics consulted. No intervention from Orthopedics. PT worked with him and he is able to walk up and down stairs. He is cleared for home discharge. His pain is well controlled. Anticipate discharge soon. Please follow up with PCP and check your creatinine. Also follow up with orthopedics at discharge if no improvement in symptoms. He is being discharged on medrol dose pack taper.
--- NOTE | 2017-09-13 13:32 | Patient Discharge Instructions ---
Discharge Instructions General Discharge Information You were seen/treated for: Right knee pain Special Instructions: Please follow up with your PCP within one week. Please have a BEP on 09/20/2017. CC results to your PCP. Please follow up with the orthopedic service next week, we have provided you with a referral. Diet Continue normal diet: Yes Activity Full Activity/No Limits: No Activity Self Limited: Yes (As Tolerated ) Acute Coronary Syndrome Inclusion Criteria At DC or during hospital stay patient has or had the following: ACS DIAGNOSIS No Discharge Core Measures Meds if any: Prescribed or Continued at Discharge Meds if any: NOT Prescribed or Continued at Discharge Congestive Heart Failure Inclusion Criteria At DC or during hospital stay patient has or had the following: CHF DIAGNOSIS No Discharge Core Measures Meds if any: Prescribed or Continued at Discharge Meds if any: NOT Prescribed or Continued at Discharge Cerebrovascular accident Inclusion Criteria At DC or during hospital stay patient has or had the following: CVA/TIA Diagnosis No Discharge Core Measures Meds if any: Prescribed or Continued at Discharge Meds if any: NOT Prescribed or Continued at Discharge Venous thromboembolism Inclusion Criteria VTE Diagnosis No VTE Type NONE VTE Confirmed by (Test) NONE Discharge Core Measures - Per Current guidelines, there needs to be overlap - treatment for the first 5 days of Warfarin therapy. - If discharged on Warfarin prior to 5 days of - overlap therapy, the patient will need to be - assessed for post discharge needs including - *Post discharge parental anticoagulation - *Warfarin and/or parental anticoagulation education - *Follow up date to check INR post discharge At least 5 days overlap therapy as Inpatient No Meds if any: Prescribed or Continued at Discharge Note: Overlap Therapy is Warfarin and Anticoagulant Meds if any: NOT Prescribed or Continued at Discharge
[2017-09-13] MEDS ORDERED: MEDROL4 M2 PO ×2 (13:37→14:00)
== END 2017-09-13 14:55 | DRG 556 ==
LOC: ERH 15:20 → ERHI 18:47 → 1NO 18:47 → ENRESERV 20:30 → ENTRNSPT 21:00 → EDTRNSPTSTS 21:21 → 1NO 21:35 → CMPTRNSPT 21:41 → 1NO 09-13 13:14 → ENPENDDIS 09-13 14:18 → 1NO 09-13 14:55 → ENTRNSPT 09-13 15:07 → CMPTRNSPT 09-13 15:09 → DELTRNSPT 09-13 18:33
PROVIDERS: Emergency Medicine; Student in an Organized Health Care Education/Training Program
DX: M25.561 Pain in right knee (principal); N17.9 Acute kidney failure, unspecified; M17.9 Osteoarthritis of knee, unspecified; I10 Essential (primary) hypertension; R26.2 Difficulty in walking, not elsewhere classified; R26.89 Other abnormalities of gait and mobility; Z85.46 Personal history of malignant neoplasm of prostate; Z66 Do not resuscitate; M54.5 Low back pain; Z79.52 Long term (current) use of systemic steroids; Z87.442 Personal history of urinary calculi; Z92.3 Personal history of irradiation
CPT/HCPCS: 1NP; 36415; 73562-RT; 82436; 93005; 93010; 96374; 97116-GO; 97162-GP; 97165-GO; J0131; J1650